=== PATIENT | female | born 1975 | race Caucasian/White ===

== ENCOUNTER 2018-11-11 19:34 | Emergency (ER) | payer MEDICAID ==
[2018-11-11] MEDS: KETOROLAC 30 MG INJ IM (20:25)
[2018-11-11] MEDS: LIDOCAINE/MYLANTA 40 ML BTL PO (20:25)
[2018-11-11] MEDS: BELLADONNA/PHENOBARBITAL TAB PO (20:27)
[2018-11-11] MEDS: FAMOTIDINE 20 MG TAB PO (20:27)
== END 2018-11-11 20:52 | disposition home or self-care (01) ==
LOC: E/R 19:34
DX: K21.0 Gastro-esophageal reflux disease with esophagitis (principal)
CPT/HCPCS: 81025; 96372; 99284-25